=== PATIENT | female | born 1960 | race Caucasian/White ===

== ENCOUNTER 2017-04-25 07:25 | Day surgery (SDC) | payer OTHER ==
[2017-04-25] VITALS (10 sets, daily range): BP systolic 128–160; BP diastolic 67–82; PULSE 89–108; RESP 12–21; Ht 160 cm; Wt 95.0 kg
[~2017-04-25] VITALS: Ht 160 cm; Wt 95.0 kg
[2017-04-25] MEDS ORDERED: HYDR25TA6 PO (08:00)
[2017-04-25] MEDS ORDERED: PARO-37 PO (08:00)
[2017-04-25] MEDS ORDERED: LOSA25TA5 PO (08:00)
[2017-04-25] MEDS ORDERED: SULF500T5 PO (08:01)
[2017-04-25] MEDS ORDERED: HYDR200T5 PO ×2 (08:01)
[2017-04-25] MEDS ORDERED: NAPR-688 PO (08:02)
[2017-04-25] MEDS ORDERED: VANCOMYCIN 1 GM in NS 250 ML IVPB ONE (10:00)
[2017-04-25] MEDS ORDERED: SOD CHLORIDE 0.9% 1,000 ML IV ONE (10:00)
[2017-04-25 10:07] LABS: BASOPHIL # 0.1 10^3/ul (0.0-0.1); BASOPHILS % 0.8 % (0.0-2.0); EOSINOPHILS # 0.1 10^3/ul (0.0-0.5); HEMATOCRIT 42.1 % (37.0-47.0); LYMPHOCYTES # 2.5 10^3/ul (0.8-2.9); LYMPHOCYTES % 37.8 % (15.0-51.0); MEAN CORPUSCULAR HEMOGLOBIN 30.7 pg (29.0-33.0); MEAN CORPUSCULAR HGB CONC 33.3 g/dl (32.0-37.0); MEAN CORPUSCULAR VOLUME 92.3 fl (82.0-101.0); MEAN PLATELET VOLUME 10.4 fl (7.4-10.4); MONOCYTE # 0.5 10^3/ul (0.3-0.9); MONOCYTES % 7.2 % (0.0-11.0); NEUTROPHIL # 3.4 10^3/ul (1.6-7.5); NEUTROPHILS % 51.9 % (39.0-77.0); PLATELET COUNT 372 10^3/UL (140-415); RED BLOOD COUNT 4.56 10^6/ul (4.20-5.40); WHITE BLOOD COUNT 6.5 10^3/ul (4.8-10.8)
[2017-04-25 10:39] LABS: INR 0.96; PARTIAL THROMBOPLASTIN TIME 26.9 Sec (25.0-35.0); PROTIME 12.8 Sec (12.2-14.2)
[2017-04-25 10:40] LABS: ALBUMIN 4.5 g/dl (3.3-4.9); ALBUMIN/GLOBULIN RATIO 1.36; BILIRUBIN,INDIRECT 0.3 mg/dl (0-1.1); BILIRUBIN,TOTAL 0.3 mg/dl (0.2-1.3); TOTAL PROTEIN 7.8 g/dl (6.1-8.1)
[2017-04-25 10:41] LABS: CALCIUM 10.1 mg/dl (8.4-10.2); CREATININE 0.83 mg/dl (0.44-1.00); POTASSIUM 3.8 mmol/L (3.5-5.1)
[2017-04-25] MEDS ORDERED: PROPOFOL 20 ML ONE ×2 (10:53→11:11)
[2017-04-25] MEDS ORDERED: LIDOCAINE 2% (SDV) 5 ML INJ ONE (10:53)
[2017-04-25] MEDS ORDERED: FENTAnyl 50 MCG/ML VIAL ONE ×2 (10:53→12:38)
[2017-04-25] MEDS ORDERED: MIDAZOLAM 1 MG/ML 2 ML INJ ONE (10:53)
--- NOTE | 2017-04-25 11:04 | RADRPT ---
PROCEDURE: XR Chest. CLINICAL INDICATION: Preoperative evaluation. TECHNIQUE: Chest x-ray, two views. COMPARISON: None. FINDINGS: The cardiomediastinal silhouette is normal. Mild aortic arch atherosclerotic calcification is observ ed. The lungs are clear. There is no evidence of pulmonary consolidation or large pleural effusion. Skeletal structures and upper abdomen are unremarkable. IMPRESSION: No radiographic evidence of acute cardiopulmonary pathology. Thoracic aortic atherosclerosis. RPTAT: HLST .Trina Bender MD, MD Date Time Electronically viewed and signed by .Trina Bender MD, MD on 04/25/2017 11:04 .T/
[2017-04-25] MEDS ORDERED: FAMOTIDINE 20 MG INJ ONE (11:26)
[2017-04-25] MEDS ORDERED: METOCLOPRAMIDE 10 MG INJ ONE (11:26)
[2017-04-25] MEDS ORDERED: ONDANSETRON 4 MG INJ ONE (11:26)
[2017-04-25] MEDS ORDERED: DEXAMETHASONE 4 MG/ML 1 ML INJ ONE (11:26)
[2017-04-25] MEDS ORDERED: EPHEDrine SULFATE 50 MG/5 ML SYG ONE (11:29)
--- NOTE | 2017-04-25 11:56 | SIPON ---
Date/Time of Note Date/Time of Note DATE: 04/25/17 TIME: 11:55 Operative Report Preoperative Diagnosis Ductal carcinoma in situ left breast Postoperative Diagnosis Same Operation/Procedure Performed Needle directed left partial mastectomy utilizing 2 needle bracketing technique Surgeon see signature line logging assistant Dr Garcia Anesthesia: general Estimated blood loss: 10 - 50 ml's Transfusion Required none Specimen Left partial mastectomy specimen Grafts/Implants none Complications none BALWINDER REED MD Apr 25, 2017 11:56
[2017-04-25] MEDS ORDERED: HYDROCODONE/APAP (7.5/325) TAB PO PRN (12:00)
--- NOTE | 2017-04-25 12:26 | OPR ---
DATE OF OPERATION: 04/25/2017 PREOPERATIVE DIAGNOSIS: Ductal carcinoma in situ, left breast. POSTOPERATIVE DIAGNOSIS: Ductal carcinoma in situ, left breast. PROCEDURE: Needle-directed left partial mastectomy. ANESTHESIA: General. ANESTHESIOLOGIST: Nurse dining host, Dr. Santana Schuler. SURGEON: Wil Becker MD. WELDING PANTOGRAPH MACHINE OPERATOR: Dr. Garcia. INDICATIONS FOR PROCEDURE: The patient is a 56-year-old female who underwent screening mammography and was found to have suspicious lesions in her left breast. Subsequent core biopsy revealed ductal carcinoma in situ. There was an adjacent lesion approximately 2 cm away. Decision was made to per form excisional biopsy of both lesions using the bracketing technique. The patient consented and wa s scheduled for surgery. DESCRIPTION OF PROCEDURE: On the morning of surgery, the patient presented to [facility] where she underwent localization of the lesion performed by attending radiologis tDr. . Subsequently, she was brought to the operating theater, placed under general anesthes ia. The left breast was prepped and draped in usual sterile fashion. The lesions were at approxima tely the 5 o'clock location of the breast near the inframammary fold. For this reason, Dr. Becker ma de decision to perform a radial incision transversing the 2 localization wires. Subcutaneous tissue was then dissected with cautery. The skin edges were elevated and wide circumferential dissection of the tissue bracketed by the [address] using cautery. Specimen was elevated, transe cted, oriented, sent for radiographic confirmation of capture. Capture was confirmed. It was then sent for permanent pathologic analysis. The wound was irrigated. Minimal bleeding was controlled w ith cautery, and the skin was then reapproximated with a 4-0 Vicryl suture in subcuticular fashion a nd benzoin and Steri-Strips were applied. The patient tolerated procedure well. The estimated bloo d loss was approximately 20 mL. There were no complications and the patient was transported in stab le condition to the recovery room. Dictated By: WIL BECKER MD TL/NTS Conf#: [id number] DID#: [id number] CC: ANNETTE GARCIA MD;*EndCC*
[2017-04-25] MEDS ORDERED: METOCLOPRAMIDE 10 MG INJ IV PRN (12:30)
[2017-04-25] MEDS ORDERED: ONDANSETRON 4 MG INJ IV PRN (12:30)
[2017-04-25] MEDS ORDERED: OXYCODONE/ACETAMINOPHEN (5/325) TAB PO PRN ×2 (12:30)
[2017-04-25] MEDS ORDERED: FENTAnyl 50 MCG/ML VIAL IV PRN ×3 (12:30)
[2017-04-25] MEDS ORDERED: MEPERIDINE 25 MG INJ IV PRN (12:30)
--- NOTE | 2017-04-25 13:23 | RADRPT ---
Vent Rate: 71 bpm RR Interval: 0 msec MN Interval: 156 msec QRS Duration: 84 msec QT Interval: 440 msec QTC Interval: 478 msec P-R-T [place]: 67 - -24 - 54 degrees Normal sinus rhythm Normal ECG Electronically Signed By: Michael Patterson [id number]
== END 2017-04-25 13:52 | disposition home or self-care (01) ==
LOC: SDS 07:25
PROVIDERS: ATTEND Surgery Surgical Oncology
DX: D05.12 Intraductal carcinoma in situ of left breast (principal); I10 Essential (primary) hypertension; E66.9 Obesity, unspecified; M06.9 Rheumatoid arthritis, unspecified
CPT/HCPCS: 19301; 71010; 80053; 85025; 85610; 85730; 88307; 93005; J1100; J2250; J2405; J2765; J3010; J3370; J7030; Z7512; Z7610